=== PATIENT | male | born 1950 | race African-American/Black ===

== ENCOUNTER 2016-12-23 08:49 | Outpatient (CLI) | payer MEDICARE, MEDICAID ==
[2016-12-23 13:06] LABS: BASOPHILS % (AUTO) 0.3 %; EOSINOPHILS # (AUTO) 0.3 10^3/uL (0.0-0.7); EOSINOPHILS % (AUTO) 3.6 %; HCT - HEMATOCRIT 41.4 % (42.0-52.0); HGB - HEMOGLOBIN 13.6 g/dL (14.0-18.0); LYMPHOCYTES # (AUTO) 2.1 10^3/uL (1.5-3.5); LYMPHOCYTES % (AUTO) 27.2 %; MEAN CORPUSCULAR HEMOGLOBIN 27.3 pg (27.0-31.0); MEAN CORPUSCULAR HGB CONC 32.9 g/dL (32.0-36.0); MEAN CORPUSCULAR VOLUME 83.1 fL (80.0-94.0); MEAN PLATELET VOLUME 9.8 fL (7.4-11.4); MONOCYTES # (AUTO) 0.8 10^3/uL (0.0-1.0); MONOCYTES % (AUTO) 10.5 %; NEUTROPHILS # (AUTO) 4.6 10^3/uL (1.5-6.6); NEUTROPHILS % (AUTO) 58.4 %; RED BLOOD COUNT 4.98 10^6/uL (4.70-6.10); RED CELL DISTRIBUTION WIDTH 14.1 % (12.0-15.0); UNCORRECTED WHITE BLOOD COUNT 7.8 x10^3/uL; WHITE BLOOD COUNT 7.8 x10^3/uL (4.8-10.8)
[2016-12-23 13:31] LABS: ALBUMIN/GLOBULIN RATIO 1.2 (1.0-2.2); BILIRUBIN,TOTAL 1.1 mg/dL (0.2-1.0); CALCIUM 9.3 mg/dL (8.5-10.3); CREATININE 1.2 mg/dL (0.6-1.2); POTASSIUM 3.7 mmol/L (3.5-5.0); TOTAL PROTEIN 8.4 g/dL (6.7-8.2)
== END 2016-12-23 08:50 | disposition home or self-care (01) ==
LOC: LAB.N 08:49
PROVIDERS: ATTEND Physician Assistant
DX: I10 Essential (primary) hypertension (principal)
CPT/HCPCS: 36415; 80053; 84443; 85025

== ENCOUNTER 2017-08-19 08:27 | Outpatient (CLI) | payer MEDICARE, MEDICAID ==
--- NOTE | 2017-08-19 12:08 | XRAY Report ---
THREE VIEW RIGHT KNEE: 08/19/2017 CLINICAL INDICATION: Knee joint instability. FINDINGS: AP, lateral, sunrise views of the right knee demonstrate no evidence of fracture or dislocation. The joint spaces are preserved. No effusion is present. IMPRESSION: NORMAL RIGHT KNEE. TD: 08/19/2017 12:06
== END 2017-08-19 08:28 | disposition home or self-care (01) ==
LOC: DI.N 08:27
PROVIDERS: ATTEND Family Medicine
DX: M25.361 Other instability, right knee (principal)

== ENCOUNTER 2017-09-11 11:30 | Outpatient (CLI) | payer MEDICARE, MEDICAID ==
[2017-09-11 19:08] LABS: BASOPHILS % (AUTO) 0.3 %; EOSINOPHILS # (AUTO) 0.2 10^3/uL (0.0-0.7); EOSINOPHILS % (AUTO) 2.8 %; HGB - HEMOGLOBIN 13.3 g/dL (14.0-18.0); LYMPHOCYTES # (AUTO) 2.1 10^3/uL (1.5-3.5); LYMPHOCYTES % (AUTO) 28.4 %; MEAN CORPUSCULAR HEMOGLOBIN 27.2 pg (27.0-31.0); MEAN CORPUSCULAR HGB CONC 32.6 g/dL (32.0-36.0); MEAN CORPUSCULAR VOLUME 83.4 fL (80.0-94.0); MEAN PLATELET VOLUME 9.7 fL (7.4-11.4); MONOCYTES # (AUTO) 0.7 10^3/uL (0.0-1.0); NEUTROPHILS # (AUTO) 4.3 10^3/uL (1.5-6.6); NEUTROPHILS % (AUTO) 59.5 %; PLT - PLATELET COUNT 206 10^3/uL (130-450); RED BLOOD COUNT 4.88 10^6/uL (4.70-6.10); RED CELL DISTRIBUTION WIDTH 14.3 % (12.0-15.0); WHITE BLOOD COUNT 7.2 x10^3/uL (4.8-10.8)
[2017-09-11 19:33] LABS: ALBUMIN 4.6 g/dL (3.2-5.5); ALBUMIN/GLOBULIN RATIO 1.2 (1.0-2.2); ALKALINE PHOSPHATASE 60 IU/L (42-121); ALT ALANINE AMINOTRANSFERASE 25 IU/L (10-60); AST ASPARTATE AMINOTRANSFERASE 23 IU/L (10-42); BILIRUBIN,TOTAL 1.1 mg/dL (0.2-1.0); BUN - BLOOD UREA NITROGEN 20 mg/dL (6-20); CALCIUM 9.1 mg/dL (8.5-10.3); CARBON DIOXIDE - CO2 23 mmol/L (21-32); CHLORIDE 106 mmol/L (101-111); CHOL/HDL RATIO 6.8 (<5.0); CHOLESTEROL 210 mg/dL; CREATININE 1.2 mg/dL (0.6-1.2); GFR - MDRD 73 (>89); GLUCOSE 99 mg/dL (70-100); HDL CHOLESTEROL 31 mg/dL; LDL CHOLESTEROL,CALCULATED 154 mg/dL; SODIUM 136 mmol/L (135-145); TOTAL PROTEIN 8.3 g/dL (6.7-8.2); VLDL CHOLESTEROL 25 mg/dL
== END 2017-09-11 11:31 | disposition home or self-care (01) ==
LOC: LAB.N 11:30
PROVIDERS: ATTEND Family Medicine
DX: B18.2 Chronic viral hepatitis C (principal); I10 Essential (primary) hypertension
CPT/HCPCS: 36415; 80053; 80061; 83721; 84443; 85025

== ENCOUNTER 2018-01-05 11:33 | Outpatient (CLI) | payer MEDICARE, MEDICAID ==
--- NOTE | 2018-01-05 14:28 | XRAY Report ---
Procedure Date: 01/05/2018 Accession Number: [id number] / [id number] Procedure: XRN - Ribs Bilat w/Chest 4 View CPT Code: FULL RESULT: EXAM: Ribs Bilat w/Chest 4 View DATE: 01/05/2018 12:15 PM CLINICAL HISTORY: acquired deformity of chest/ribs COMPARISON: None. TECHNIQUE: 1 view of the chest and 2 views of the bilateral ribs. FINDINGS: Bones: Normal. No fracture or bone lesion. Lungs: No focal opacities. No pneumothorax or pleural effusions. Mediastinum: Heart and mediastinal contours are unremarkable. Other: None. IMPRESSION: Normal chest and rib radiography. RADIA
== END 2018-01-05 11:34 | disposition home or self-care (01) ==
LOC: DI.N 11:33
PROVIDERS: ATTEND Family Medicine
DX: M95.4 Acquired deformity of chest and rib (principal); R29.6 Repeated falls
CPT/HCPCS: 71111

== ENCOUNTER 2018-04-09 09:46 | Outpatient (CLI) | payer MEDICARE, MEDICAID ==
[2018-04-09 15:47] LABS: CREATININE 1.1 mg/dL (0.6-1.2)
== END 2018-04-09 09:47 | disposition home or self-care (01) ==
LOC: LAB.N 09:46
PROVIDERS: ATTEND Family Medicine
DX: I10 Essential (primary) hypertension (principal)
CPT/HCPCS: 36415; 80048

== ENCOUNTER 2018-09-20 14:31 | Outpatient (CLI) | payer MEDICARE, MEDICAID | END 2018-09-20 14:32 | disposition critical access hospital (66) | LOC: EMS 14:31 | PROVIDERS: ATTEND Surgery | DX: R05 Cough (principal); M25.551 Pain in right hip | CPT/HCPCS: A0425; A0429 ==

== ENCOUNTER 2018-09-20 14:51 | Emergency (ER) | payer MEDICARE, MEDICAID ==
[2018-09-20] MEDS ORDERED: ONDANSETRON 4 MG/2 ML VIAL IVP STA (16:11)
[2018-09-20] MEDS ORDERED: CARBIDOPA/LEVODOPA 25 MG/100 MG TABLET PO STA (16:11)
[2018-09-20] MEDS ORDERED: DEXAMETHASONE 10 MG/ML VIAL IVP STA (16:11)
--- NOTE | 2018-09-20 16:14 | ED Physician Documentation ---
History of Present Illness - Stated complaint Stated Complaint: FEVER/N/V - Chief complaint Chief Complaint: General - History obtained from History obtained from: Patient, Family - History of Present Illness Timing: How many days ago (4) - Additonal information Additional information: 68-year-old male with a history of Parkinson's disease has developed a cough fever and congestion over the past 4 days. Today his fever spiked and he is feeling weak and he collapsed at home. He did vomit today as well. He was vomiting right after he took his dose of carbidopa levodopa. Review of Systems Constitutional: reports: Fever, Chills, Myalgias, Fatigue Eyes: denies: Decreased vision Ears: denies: Ear pain Nose: reports: Rhinorrhea / runny nose, Congestion Throat: reports: Sore throat Cardiac: denies: Chest pain / pressure, Palpitations Respiratory: reports: Dyspnea, Cough GI: reports: Nausea, Vomiting. denies: Abdominal Pain : denies: Dysuria, Frequency Skin: denies: Rash Musculoskeletal: denies: Neck pain, Back pain, Extremity pain, Joint pain Neurologic: reports: Generalized weakness. denies: Focal weakness, Numbness PD PAST MEDICAL HISTORY - Past Medical History Past Medical History: Yes Cardiovascular: Hypertension Respiratory: None Neuro: Parkinson's Endocrine/Autoimmune: None GI: Hepatitis, Other : None HEENT: None Psych: None Musculoskeletal: None Derm: None - Past Surgical History General: Colonoscopy, Other - Present Medications Home Medications: Ambulatory Orders Medication Instructions Recorded Confirmed Losartan [Cozaar] 100 mg PO DAILY 02/23/14 09/20/18 Multivitamin [Multivitamins] 1 each PO DAILY 02/23/14 09/20/18 Carbidopa/Levodopa [Carbidopa-Levo 1 each PO QID 09/20/18 09/20/18 ER 25-100 Tab] Omeprazole 20 mg PO DAILY 09/20/18 09/20/18 Ondansetron Odt [Zofran] 4 mg TL Q6H PRN #10 tablet 09/20/18 Oseltamivir [Tamiflu] 75 mg PO BID #10 capsule 09/20/18 Trazodone HCl 100 mg PO QPM 09/20/18 09/20/18 - Allergies Allergies/Adverse Reactions: Allergies Allergy/AdvReac Type Severity Reaction Status Date / Time No Known Drug Allergies Allergy Verified 09/20/18 15:00 - Social History Does the pt smoke?: No Smoking Status: Never smoker Does the pt drink ETOH?: No Does the pt have substance abuse?: No PD ED PE NORMAL - Vitals Vital signs reviewed: Yes (febrile and tachy ) - General General: Alert and oriented X 3, No acute distress, Well developed/nourished, Other (masked facies of Parkinsons. 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 ) Results - Vitals Vitals: Vital Signs - 24 hr 09/20/18 09/20/18 09/20/18 14:57 17:12 17:17 Temperature 38.1 C H 37.6 C H Heart Rate 110 H 104 H Respiratory 18 18 Rate Blood Pressure 147/80 H 134/86 H O2 Saturation 95 98 Oxygen O2 Source Room air - Labs Labs: Laboratory Tests 09/20/18 09/20/18 09/20/18 16:25 16:25 16:25 WBC 10.3 RBC 5.03 Hgb 13.7 L Hct 41.5 L MCV 82.6 MCH 27.2 MCHC 33.0 RDW 13.8 Plt Count 230 MPV 9.2 Neut # (Auto) 8.2 H Lymph # (Auto) 0.9 L [place] # (Auto) 1.0 Eos # (Auto) 0.1 Baso # (Auto) 0.0 Absolute Nucleated RBC 0.00 Nucleated RBC % 0.0 Sodium 137 Potassium 3.4 L Chloride 101 Carbon Dioxide 25 Anion Gap 11.0 BUN 18 Creatinine 1.4 H Estimated GFR (MDRD) 61 L Glucose 84 Lactic Acid Calcium 8.8 Total Bilirubin 1.7 H AST 29 ALT < 10 L Alkaline Phosphatase 73 Troponin I < 0.04 Total Protein 8.7 H Albumin 4.6 Globulin 4.1 Albumin/Globulin Ratio 1.1 Lipase 33 Influenza A (Rapid) Influenza B (Rapid) 09/20/18 09/20/18 16:35 17:00 WBC RBC Hgb Hct MCV MCH MCHC RDW Plt Count MPV Neut # (Auto) Lymph # (Auto) [place] # (Auto) Eos # (Auto) Baso # (Auto) Absolute Nucleated RBC Nucleated RBC % Sodium Potassium Chloride Carbon Dioxide Anion Gap BUN Creatinine Estimated GFR (MDRD) Glucose Lactic Acid 1.5 Calcium Total Bilirubin AST ALT Alkaline Phosphatase Troponin I Total Protein Albumin Globulin Albumin/Globulin Ratio Lipase Influenza A (Rapid) POSITIVE H Influenza B (Rapid) Negative - Rads (name of study) chest Radiology: Prelim report reviewed (Impression: Negative single view chest.), EMP read indepedently, See rad report Procedures - IVC sono (time) 09246 Bedside IVC sono: IVC measures (cm) (1.23), IVC collapsed c insp (cm) (complete), Dehydration (est 1 liter deficit.) PD MEDICAL DECISION MAKING - ED course Complexity details: considered differential, d/w patient, d/w family ED course: 68-year-old male with a history of Parkinson's has developed fever nausea and vomiting with a cough. He is administered dexamethasone 10 mg orally a liter of saline and after the use of Zofran he is administered oral carbidopa levodopa. He is flu A + and compromised. He is prescribed tamiflu as well. Departure - Departure Disposition: 01 Home, Self Care Clinical Impression: Influenza A, Dehydration Condition: Stable Instructions: ED Dehydration, ED Flu Follow-Up: Mary Vides ARNP [Primary Care Provider] - Prescriptions: Ondansetron Odt [Zofran] 4 mg TL Q6H PRN #10 tablet PRN Reason: Nausea / Vomiting Oseltamivir [Tamiflu] 75 mg PO BID #10 capsule
[2018-09-20 16:44] LABS: BASOPHILS % (AUTO) 0.4 %; EOSINOPHILS # (AUTO) 0.1 10^3/uL (0.0-0.7); EOSINOPHILS % (AUTO) 1.3 %; HGB - HEMOGLOBIN 13.7 g/dL (14.0-18.0); LYMPHOCYTES # (AUTO) 0.9 10^3/uL (1.5-3.5); LYMPHOCYTES % (AUTO) 8.7 %; MEAN CORPUSCULAR HEMOGLOBIN 27.2 pg (27.0-31.0); MEAN CORPUSCULAR VOLUME 82.6 fL (80.0-94.0); MEAN PLATELET VOLUME 9.2 fL (7.4-11.4); NEUTROPHILS # (AUTO) 8.2 10^3/uL (1.5-6.6); NEUTROPHILS % (AUTO) 79.6 %; PLT - PLATELET COUNT 230 10^3/uL (130-450); RED BLOOD COUNT 5.03 10^6/uL (4.70-6.10); RED CELL DISTRIBUTION WIDTH 13.8 % (12.0-15.0); WHITE BLOOD COUNT 10.3 x10^3/uL (4.8-10.8)
[2018-09-20 16:56] LABS: ALBUMIN 4.6 g/dL (3.2-5.5); ALBUMIN/GLOBULIN RATIO 1.1 (1.0-2.2); ALKALINE PHOSPHATASE 73 IU/L (42-121); ALT ALANINE AMINOTRANSFERASE < 10 IU/L (10-60); AST ASPARTATE AMINOTRANSFERASE 29 IU/L (10-42); BILIRUBIN,TOTAL 1.7 mg/dL (0.2-1.0); BUN - BLOOD UREA NITROGEN 18 mg/dL (6-20); CALCIUM 8.8 mg/dL (8.5-10.3); CARBON DIOXIDE - CO2 25 mmol/L (21-32); CHLORIDE 101 mmol/L (101-111); CREATININE 1.4 mg/dL (0.6-1.2); GFR - MDRD 61 (>89); GLUCOSE 84 mg/dL (70-100); LIPASE 33 U/L (22-51); SODIUM 137 mmol/L (135-145); TOTAL PROTEIN 8.7 g/dL (6.7-8.2)
--- NOTE | 2018-09-20 17:03 | XRAY Report ---
Reason: cough syncope collapse fever Procedure Date: 09/20/2018 Accession Number: [id number] / [id number] Procedure: XR - Chest 1 View X-Ray CPT Code: 99229 FULL RESULT: EXAM: CHEST RADIOGRAPHY EXAM DATE: 09/20/2018 04:54 PM. CLINICAL HISTORY: Cough syncope collapse fever. COMPARISON: RIBS BILAT W/CHEST 4 VIEW 01/05/2018 12:02 PM. TECHNIQUE: 1 view. FINDINGS: Lungs/Pleura: No focal opacities evident. No pleural effusion. No pneumothorax. Mediastinum: Within exam limitations, the cardiomediastinal contour is normal. Other: None. IMPRESSION: Negative single view chest. RADIA
[2018-09-20 19:23] VITALS: BP 144/94
== END 2018-09-20 19:15 | disposition home or self-care (01) ==
LOC: EDUNIT# → ED 14:51
DX: J10.89 Influenza due to other identified influenza virus with other manifestations (principal); E86.0 Dehydration; G20 Parkinson's disease; I10 Essential (primary) hypertension
CPT/HCPCS: 36415; 71045; 80053; 83605; 83690; 84484; 85025; 87040; 87275; 87276; 96374; 96375; 99283; 99284; A9270

== ENCOUNTER 2018-10-20 08:00 | Outpatient (CLI) | payer MEDICARE, MEDICAID ==
[2018-10-20 12:49] LABS: BASOPHILS % (AUTO) 0.3 %; EOSINOPHILS # (AUTO) 0.3 10^3/uL (0.0-0.7); EOSINOPHILS % (AUTO) 3.5 %; HGB - HEMOGLOBIN 13.3 g/dL (14.0-18.0); LYMPHOCYTES # (AUTO) 1.8 10^3/uL (1.5-3.5); LYMPHOCYTES % (AUTO) 22.7 %; MEAN CORPUSCULAR HEMOGLOBIN 27.5 pg (27.0-31.0); MEAN CORPUSCULAR HGB CONC 32.8 g/dL (32.0-36.0); MEAN CORPUSCULAR VOLUME 83.9 fL (80.0-94.0); MEAN PLATELET VOLUME 9.6 fL (7.4-11.4); MONOCYTES # (AUTO) 0.6 10^3/uL (0.0-1.0); MONOCYTES % (AUTO) 7.7 %; NEUTROPHILS # (AUTO) 5.1 10^3/uL (1.5-6.6); NEUTROPHILS % (AUTO) 65.8 %; PLT - PLATELET COUNT 232 10^3/uL (130-450); RED BLOOD COUNT 4.83 10^6/uL (4.70-6.10); RED CELL DISTRIBUTION WIDTH 14.3 % (12.0-15.0); WHITE BLOOD COUNT 7.8 x10^3/uL (4.8-10.8)
[2018-10-20 13:19] LABS: BUN - BLOOD UREA NITROGEN 8 mg/dL (6-20); CALCIUM 9.2 mg/dL (8.5-10.3); CARBON DIOXIDE - CO2 25 mmol/L (21-32); CHLORIDE 103 mmol/L (101-111); CHOL/HDL RATIO 5.1 (<5.0); CHOLESTEROL 183 mg/dL; CREATININE 1.2 mg/dL (0.6-1.2); GFR - MDRD 73 (>89); GLUCOSE 97 mg/dL (70-100); HDL CHOLESTEROL 36 mg/dL; LDL CHOLESTEROL,CALCULATED 115 mg/dL; LDL/HDL RATIO 3.2 (<3.6); SODIUM 138 mmol/L (135-145); VLDL CHOLESTEROL 32 mg/dL
== END 2018-10-20 23:59 | disposition home or self-care (01) ==
LOC: LAB.N 08:00
PROVIDERS: ATTEND Physician Assistant Medical
DX: I12.9 Hypertensive chronic kidney disease with stage 1 through stage 4 chronic kidney disease, or unspecified chronic kidney disease (principal); N18.2 Chronic kidney disease, stage 2 (mild); G47.00 Insomnia, unspecified
CPT/HCPCS: 36415; 80048; 80061; 83721; 84443; 85025

== ENCOUNTER 2020-05-18 09:23 | Day surgery (SDC) | payer MEDICARE, MEDICAID ==
[2020-05-18] MEDS ORDERED: MIDAZOLAM 2 MG/2 ML VIAL IVP ONE (10:40)
[2020-05-18] MEDS ORDERED: fentaNYL 250 MCG/5 ML VIAL IVP ONE (10:40)
[2020-05-18] MEDS ORDERED: LACTATED RINGERS 1,000 ML IV ONE (11:23)
[2020-05-18 12:00] VITALS: BP 141/93
== END 2020-05-18 09:24 | disposition home or self-care (01) ==
LOC: SDS 09:23
PROVIDERS: ATTEND Surgery
PROC: 0DJD8ZZ Inspection of Lower Intestinal Tract, Via Natural or Artificial Opening Endoscopic (ICD-10-PCS; principal; 2020-05-18 10:45)
DX: D64.9 Anemia, unspecified (principal); K57.30 Diverticulosis of large intestine without perforation or abscess without bleeding; Z86.010 Personal history of colon polyps; I12.9 Hypertensive chronic kidney disease with stage 1 through stage 4 chronic kidney disease, or unspecified chronic kidney disease; N18.2 Chronic kidney disease, stage 2 (mild)
CPT/HCPCS: 45378; J3010; J7120

== ENCOUNTER 2020-07-16 08:05 | Outpatient (CLI) | payer MEDICARE, MEDICAID | END 2020-07-16 08:06 | disposition EMS.NT | LOC: EMS 08:05 | PROVIDERS: ATTEND Surgery | DX: R41.0 Disorientation, unspecified (principal) ==

== ENCOUNTER 2020-07-16 22:19 | Outpatient (CLI) | payer MEDICARE, MEDICAID | END 2020-07-16 22:20 | disposition critical access hospital (66) | LOC: EMS 22:19 | PROVIDERS: ATTEND Surgery | DX: R41.0 Disorientation, unspecified (principal) | CPT/HCPCS: A0425; A0429 ==

== ENCOUNTER 2020-07-16 22:36 | Emergency (ER) | payer MEDICARE, MEDICAID ==
[2020-07-16 23:10] LABS: BASOPHILS % (AUTO) 0.3 %; EOSINOPHILS # (AUTO) 0.2 10^3/uL (0.0-0.7); EOSINOPHILS % (AUTO) 1.9 %; HGB - HEMOGLOBIN 12.6 g/dL (14.0-18.0); LYMPHOCYTES # (AUTO) 2.5 10^3/uL (1.5-3.5); LYMPHOCYTES % (AUTO) 27.7 %; MEAN CORPUSCULAR HEMOGLOBIN 28.1 pg (27.0-31.0); MEAN CORPUSCULAR HGB CONC 32.1 g/dL (32.0-36.0); MEAN CORPUSCULAR VOLUME 87.5 fL (80.0-94.0); MEAN PLATELET VOLUME 11.4 fL (7.4-11.4); MONOCYTES # (AUTO) 0.9 10^3/uL (0.0-1.0); MONOCYTES % (AUTO) 10.1 %; NEUTROPHILS # (AUTO) 5.5 10^3/uL (1.5-6.6); NEUTROPHILS % (AUTO) 59.9 %; PLT - PLATELET COUNT 194 10^3/uL (130-450); RED BLOOD COUNT 4.49 10^6/uL (4.70-6.10); WHITE BLOOD COUNT 9.1 x10^3/uL (4.8-10.8)
[2020-07-16 23:21] LABS: ALBUMIN 4.2 g/dL (3.2-5.5); ALBUMIN/GLOBULIN RATIO 1.2 (1.0-2.2); BILIRUBIN,TOTAL 0.8 mg/dL (0.2-1.0); CALCIUM 9.3 mg/dL (8.5-10.3); CREATININE 1.1 mg/dL (0.6-1.2); TOTAL PROTEIN 7.6 g/dL (6.7-8.2)
--- NOTE | 2020-07-16 23:46 | ED Physician Documentation ---
PD HPI ALTERED MENTAL STATUS - Stated complaint Stated Complaint: AMS - Chief complaint Chief Complaint: Neuro - History obtained from History obtained from: Patient, EMS - History of Present Illness Timing - onset: Today Timing - details: Waxing and waning Quality / character: Confused (he says he mixed up day and night. called EMS as the patient was somewhat confused, not oriented to time. EMS reports the pateint complained of shortness of breath.) Associated symptoms: Dyspnea. No: Fever, Headache, Cough, NVD, Focal weakness Contributing factors: No: Anticoagulated, Diabetic, Recent med change, Recent illness, Recent injury Basline status: Alert and oriented X 3, Walker Treatment SUMMER NANNY: Accucheck Similar symptoms before: No diagnosis (milder symptoms at times) Recently seen: Not recently seen (he denies any recent change in medications) Review of Systems Constitutional: denies: Fever, Chills Nose: denies: Rhinorrhea / runny nose, Congestion Throat: denies: Sore throat Respiratory: denies: Cough GI: denies: Abdominal Pain, Nausea, Vomiting, Diarrhea Musculoskeletal: denies: Neck pain, Back pain Neurologic: denies: Focal weakness, Numbness, Near syncope, Headache PD PAST MEDICAL HISTORY - Past Medical History Cardiovascular: Hypertension Respiratory: None Neuro: Parkinson's Endocrine/Autoimmune: None GI: Hepatitis, Other : None HEENT: None Psych: None Musculoskeletal: None Derm: None - Past Surgical History Past Surgical History: Yes General: Colonoscopy, Other - Present Medications Home Medications: Ambulatory Orders Medication Instructions Recorded Confirmed Losartan [Cozaar] 100 mg PO DAILY 02/23/14 07/16/20 Multivitamin [Multivitamins] 1 each PO DAILY 02/23/14 07/16/20 Carbidopa/Levodopa [Carbidopa-Levo 1 each PO QID 09/20/18 07/16/20 ER 25-100 Tab] Omeprazole 20 mg PO DAILY 09/20/18 07/16/20 Trazodone HCl 100 mg PO QPM 09/20/18 07/16/20 amLODIPine [Norvasc] 5 mg PO DAILY 07/16/20 07/16/20 - Allergies Allergies/Adverse Reactions: Allergies Allergy/AdvReac Type Severity Reaction Status Date / Time No Known Drug Allergies Allergy Verified 07/16/20 22:48 - Living Situation Living Situation: reports: With spouse/s.o. Living Arrangement: reports: At home - Social History Does the pt smoke?: No Smoking Status: Never smoker Does the pt drink ETOH?: No Does the pt have substance abuse?: No - Immunizations Immunizations are current?: Yes PD ED PE NORMAL - Vitals Vital signs reviewed: Yes - General General: No acute distress, Well developed/nourished, Other. No: Alert and oriented X 3 (person and place, and pretty close on date (said Jun), but did not recall eating today or what he had to eat. 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 No: ST elevation c/w ischemia, ST depression - Labs Labs: Laboratory Tests 07/16/20 07/16/20 07/16/20 23:00 23:00 23:00 WBC 9.1 RBC 4.49 L Hgb 12.6 L Hct 39.3 L MCV 87.5 MCH 28.1 MCHC 32.1 RDW 14.0 Plt Count 194 MPV 11.4 Neut # (Auto) 5.5 Lymph # (Auto) 2.5 [place] # (Auto) 0.9 Eos # (Auto) 0.2 Baso # (Auto) 0.0 Absolute Nucleated RBC 0.00 Nucleated RBC % 0.0 Sodium 139 Potassium 3.7 Chloride 105 Carbon Dioxide 24 Anion Gap 10.0 BUN 16 Creatinine 1.1 Estimated GFR (MDRD) 80 L Glucose 99 Calcium 9.3 Total Bilirubin 0.8 AST 20 ALT 12 Alkaline Phosphatase 63 Troponin I High Sens 4.9 B-Natriuretic Peptide Total Protein 7.6 Albumin 4.2 Globulin 3.4 Albumin/Globulin Ratio 1.2 Lipase 41 07/16/20 23:00 WBC RBC Hgb Hct MCV MCH MCHC RDW Plt Count MPV Neut # (Auto) Lymph # (Auto) [place] # (Auto) Eos # (Auto) Baso # (Auto) Absolute Nucleated RBC Nucleated RBC % Sodium Potassium Chloride Carbon Dioxide Anion Gap BUN Creatinine Estimated GFR (MDRD) Glucose Calcium Total Bilirubin AST ALT Alkaline Phosphatase Troponin I High Sens B-Natriuretic Peptide 25 Total Protein Albumin Globulin Albumin/Globulin Ratio Lipase - Rads (name of study) head CT Radiology: Prelim report reviewed (age related changes, no acute process), See rad report PD MEDICAL DECISION MAKING - ED course Complexity details: reviewed results, re-evaluated patient (he is still feeling okay. No complaint of dyspnea here now.), considered differential (can check labs and CXR/ECG for dyspnea causes. He seems reasonably oriented here. Can check labs and CT head. No recent illness nor med changes. ), d/w patient Departure - Departure Disposition: 01 Home, Self Care Clinical Impression: Confusion Dyspnea Qualifiers: Dyspnea type: shortness of breath Qualified Code(s): R06.02 - Shortness of breath Condition: Stable Record reviewed to determine appropriate education?: Yes Instructions: ED Dyspnea Shortness of Breath Comments: Your basic blood tests of blood count and chemistry panel as well as chest x-ray EKG and head CT appear normal at this time. No signs of pneumonia nor heart failure nor heart attack. Not clear the cause of your feeling of shortness of breath. Continue with usual medications and stay well-hydrated. Follow-up with your primary care. Discharge Date/Time: 07/17/20 03:58
[2020-07-17 03:47] VITALS: BP 162/88
--- NOTE | 2020-07-17 07:47 | CT Report ---
PROCEDURE: HEAD WO INDICATIONS: confus TECHNIQUE: Noncontrast 4.5 mm thick angled axial sections acquired from the foramen magnum to the vertex. For r adiation dose reduction, the following was used: automated exposure control, adjustment of mA and/or kV according to patient size. COMPARISON: Brain MRI dated 06/12/2015 FINDINGS: Image quality: Excellent. CSF spaces: Basal cisterns are patent. No extra-axial fluid collections. Ventricles are stable in size and configuration. Brain: There is diffuse cortical volume loss with associated ex vacuo dilatation of the bilateral ve ntricles. No acute intracranial hemorrhage or evidence of transcortical infarction. Scattered bilat eral periventricular white matter hypoattenuation likely sequela from chronic small vessel ischemic d isease. Atherosclerotic calcifications within the intracranial segments of the bilateral internal car otid arteries are noted. Skull and face: Calvarium and visualized facial bones are intact, without suspicious lesions. Sinuses: Visualized sinuses and mastoids are clear. IMPRESSION: 1. CT head without acute intracranial abnormalities. 2. Stable age-related senescent changes and sequela of chronic small vessel ischemic disease. 3. Stable size and configuration of the bilateral ventricles. No significant discrepancy with initial interpretation by overnight radiologist. Reviewed by: Parish Alicea MD on 07/17/2020 7:46 AM PST Approved by: Parish Alicea MD on 07/17/2020 7:46 AM PST Station ID: [id number]
--- NOTE | 2020-07-17 10:13 | XRAY Report ---
PROCEDURE: Chest 1 View X-Ray INDICATIONS: dyspnea TECHNIQUE: One view of the chest was acquired. COMPARISON: Chest x-ray 09/21/2018 FINDINGS: Surgical changes and devices: None. Lungs and pleura: No pleural effusions or pneumothorax. Lungs are clear. Mediastinum: Mediastinal contours appear normal. Heart size is normal. Bones and chest wall: No suspicious bony lesions. Overlying soft tissues appear unremarkable. IMPRESSION: No acute pulmonary process. Reviewed by: Ivette Jones MD on 07/17/2020 10:11 AM [facility] Approved by: Ivette Jones MD on 07/17/2020 10:11 AM [facility] Station ID: [id number]
== END 2020-07-17 03:58 | disposition home or self-care (01) ==
LOC: EDUNIT# → EDBD → ED 22:36
DX: R41.0 Disorientation, unspecified (principal); R06.02 Shortness of breath; I10 Essential (primary) hypertension; G20 Parkinson's disease
CPT/HCPCS: 36415; 70450; 80053; 83690; 83880; 84484; 85025; 93005; 99284

== ENCOUNTER 2020-07-18 08:00 | Outpatient (CLI) | payer MEDICARE, MEDICAID ==
[2020-07-18 12:23] LABS: CREATININE,URINE 269.9 mg/dL; MICROALBUM/CREATININE RATIO,UR 2.2 ug/mg (<30.0); MICROALBUMIN,URINE 0.6 mg/dL (0-300.0)
[2020-07-18 12:36] LABS: BUN - BLOOD UREA NITROGEN 16 mg/dL (6-20); CALCIUM 9.5 mg/dL (8.5-10.3); CARBON DIOXIDE - CO2 26 mmol/L (21-32); CHLORIDE 104 mmol/L (101-111); CHOL/HDL RATIO 3.7 (<5.0); CHOLESTEROL 192 mg/dL; CREATININE 1.1 mg/dL (0.6-1.2); GLUCOSE 93 mg/dL (70-100); HDL CHOLESTEROL 52 mg/dL; LDL CHOLESTEROL,CALCULATED 120 mg/dL; LDL/HDL RATIO 2.3 (<3.6); VLDL CHOLESTEROL 20 mg/dL
[2020-07-18 12:46] LABS: % IRON SATURATION 17 % (20-50); IRON 64 ug/dL (45-182); TOTAL IRON BINDING CAPACITY 377 ug/dL (250-450); TRANSFERRIN 269 mg/dL (180-329)
[2020-07-18 12:51] LABS: ABSOLUTE RETICS # AUTO 0.053 10^6/uL (0.020-0.110); RED BLOOD COUNT 4.69 10^6/uL (4.70-6.10)
[2020-07-18 12:53] LABS: HEMOGLOBIN A1c% 5.5 % (4.27-6.07)
[2020-07-18 12:56] LABS: FERRITIN 36.9 ng/mL (23.9-336.2)
[2020-07-18 13:01] LABS: FOLATE 9.1 ng/mL (5.90 - >24.8)
== END 2020-07-18 23:59 | disposition home or self-care (01) ==
LOC: LAB.WCP 08:00
PROVIDERS: ATTEND Internal Medicine
DX: I10 Essential (primary) hypertension (principal); G62.9 Polyneuropathy, unspecified
CPT/HCPCS: 36415; 80048; 80061; 82043; 82570; 82607; 82728; 82746; 83036; 83540; 83721; 84466; 85045

== ENCOUNTER 2020-07-20 10:30 | Outpatient (CLI) | payer MEDICARE, MEDICAID | END 2020-07-20 23:59 | disposition home or self-care (01) | LOC: LAB.R 10:30 | PROVIDERS: ATTEND Internal Medicine | DX: G62.9 Polyneuropathy, unspecified (principal) | CPT/HCPCS: 81599; 82570; 84156; 84166; 86335 ==

== ENCOUNTER 2020-09-30 20:53 | Outpatient (CLI) | payer MEDICARE, MEDICAID | END 2020-09-30 20:54 | disposition critical access hospital (66) | LOC: EMS 20:53 | PROVIDERS: ATTEND Emergency Medicine | DX: R06.01 Orthopnea (principal) | CPT/HCPCS: A0425; A0429 ==

== ENCOUNTER 2020-09-30 21:12 | Emergency (ER) | payer MEDICARE, MEDICAID ==
--- NOTE | 2020-09-30 21:33 | ED Physician Documentation ---
PD HPI DYSPNEA - Stated complaint Stated Complaint: SOA - Chief complaint Chief Complaint: Resp - History obtained from History obtained from: Patient, EMS - History of Present Illness Timing - onset: How many months ago (He states he has noticed couple of months in particular of feeling of dyspnea when he lays down flat. He denies exertional dyspnea. He has nausea at times with it.) Timing - onset during: Rest (lying flat) Timing - duration: Months Timing - details: Intermittant (does not notice it when sitting up nor with walking.) Inciting event(s): No: URI, Immobilization/travel Improved by: Sitting up Worsened by: Laying flat. No: Exertion, Coughing Associated symptoms: Other (reflux acid feeling at times.). No: Fever, Cough, Hemoptysis, Wheezing, Palpitations, Bilateral edema Similar symptoms before: No diagnosis Recently seen: Clinic (started on HCTZ but no CXR/labs.) Review of Systems Constitutional: denies: Fever, Chills Nose: denies: Rhinorrhea / runny nose, Congestion Throat: denies: Sore throat Cardiac: denies: Chest pain / pressure, Palpitations Respiratory: reports: Dyspnea. denies: Cough, Wheezing GI: reports: Nausea. denies: Abdominal Pain, Vomiting, Diarrhea, Bloody / black stool Neurologic: denies: Generalized weakness Endocrine: denies: Weight loss PD PAST MEDICAL HISTORY - Past Medical History Cardiovascular: Hypertension Respiratory: None Neuro: Parkinson's Endocrine/Autoimmune: None GI: Hepatitis, Other : None HEENT: None Psych: None Musculoskeletal: None Derm: None - Past Surgical History Past Surgical History: Yes General: Colonoscopy, Other - Present Medications Home Medications: Ambulatory Orders Medication Instructions Recorded Confirmed Multivitamin [Multivitamins] 1 each PO DAILY 02/23/14 07/16/20 Carbidopa/Levodopa [Carbidopa-Levo 1 each PO QID 09/20/18 07/16/20 ER 25-100 Tab] amLODIPine [Norvasc] 5 mg PO DAILY 07/16/20 07/16/20 Famotidine [Pepcid] 20 mg PO DAILY #30 tablet 09/30/20 Hydrochlorothiazide 25 mg PO QPM 09/30/20 09/30/20 Sucralfate [Carafate] 1 gm PO HS #30 tablet 09/30/20 - Allergies Allergies/Adverse Reactions: Allergies Allergy/AdvReac Type Severity Reaction Status Date / Time No Known Drug Allergies Allergy Verified 09/30/20 21:23 - Social History Does the pt smoke?: No Smoking Status: Never smoker Does the pt drink ETOH?: No Does the pt have substance abuse?: No - Immunizations Immunizations are current?: Yes PD ED PE NORMAL - Vitals Vital signs reviewed: Yes - General General: Alert and oriented X 3, No acute distress, Well developed/nourished - HEENT HEENT: Moist mucous membranes, Pharynx benign - Neck Neck: Supple, no meningeal sign, No adenopathy - Cardiac Cardiac: RRR, No murmur - Respiratory Respiratory: Clear bilaterally - Abdomen Abdomen: Normal bowel sounds, Soft, Non tender, Non distended, No organomegaly - Derm Derm: Normal color, Warm and dry - Extremities Extremities: No deformity, No tenderness to palpate, No edema, No calf tenderness / cord - Neuro Neuro: Alert and oriented X 3, No motor deficit, Normal speech Results - Vitals Vitals: Vital Signs - 24 hr 09/30/20 09/30/20 21:12 23:59 Temperature 37.0 C Heart Rate 87 74 Respiratory 20 18 Rate Blood Pressure 123/91 H 137/77 H O2 Saturation 100 100 Oxygen O2 Source Room air - EKG (time done) 21:37 Rate: Rate (enter#) (80) Rhythm: NSR [place]: Normal Intervals: Normal [place] QRS: Normal Ischemia: Normal ST segments. No: ST elevation c/w ischemia, ST depression - Labs Labs: Laboratory Tests 09/30/20 09/30/20 09/30/20 21:37 21:37 21:37 WBC 9.6 RBC 4.88 Hgb 13.7 L Hct 42.8 MCV 87.7 MCH 28.1 MCHC 32.0 RDW 13.6 Plt Count 249 MPV 10.8 Neut # (Auto) 6.3 Lymph # (Auto) 2.0 [place] # (Auto) 1.1 H Eos # (Auto) 0.1 Baso # (Auto) 0.0 Absolute Nucleated RBC 0.00 Nucleated RBC % 0.0 Sodium 138 Potassium 3.9 Chloride 104 Carbon Dioxide 25 Anion Gap 9.0 BUN 23 H Creatinine 1.2 Estimated GFR (MDRD) 73 L Glucose 106 H Calcium 9.3 Magnesium 2.3 Total Bilirubin 0.9 AST 17 ALT 12 Alkaline Phosphatase 67 Troponin I High Sens 6.3 B-Natriuretic Peptide Total Protein 8.0 Albumin 4.4 Globulin 3.6 Albumin/Globulin Ratio 1.2 Lipase 37 09/30/20 21:37 WBC RBC Hgb Hct MCV MCH MCHC RDW Plt Count MPV Neut # (Auto) Lymph # (Auto) [place] # (Auto) Eos # (Auto) Baso # (Auto) Absolute Nucleated RBC Nucleated RBC % Sodium Potassium Chloride Carbon Dioxide Anion Gap BUN Creatinine Estimated GFR (MDRD) Glucose Calcium Magnesium Total Bilirubin AST ALT Alkaline Phosphatase Troponin I High Sens B-Natriuretic Peptide 9 Total Protein Albumin Globulin Albumin/Globulin Ratio Lipase - Rads (name of study) CT chest Radiology: Prelim report reviewed (hiatal hernia with some indurated fat in area. No vascular process. ), Other chest xray Radiology: Prelim report reviewed (no acute process), See rad report PD MEDICAL DECISION MAKING - ED course Complexity details: re-evaluated patient (improved with GI cocktail. CT showing hiatal hernia with indurated fat in the area c/w some active esophagitis/GERD), considered differential (does not seem fluid overloaded, no edema. Consider reflux, also consider structural process (tumor or such) that affects bronchioles/airspace with lying flat. Will get CXR/CT to eval. ), d/w patient Departure - Departure Disposition: 01 Home, Self Care Clinical Impression: Orthopnea GERD with esophagitis Qualifiers: Esophagitis bleeding: without hemorrhage Qualified Code(s): K21.00 - Gastro- esophageal reflux disease with esophagitis, without bleeding Condition: Stable Record reviewed to determine appropriate education?: Yes Instructions: ED Dyspnea Shortness of Breath, ED GERD Prescriptions: Sucralfate [Carafate] 1 gm PO HS #30 tablet Famotidine [Pepcid] 20 mg PO DAILY #30 tablet Comments: Your CT scan shows normal-appearing lungs. No signs of heart disease based on your EKG and blood test. The CT scan did show a hiatal hernia which is where part of the stomach is up just above the level of the diaphragm. This promotes more easy reflux. There was some inflammation around the end of the esophagus noted on the scan as well. I think your symptoms you have been having are related to reflux of stomach acids and irritation of the esophagus and also towards the upper airway. I would suggest sleeping with a couple of pillows to prop up at a slight angle. Also start famotidine acid reducing medicine daily and Carafate to coat the esophagus and stomach taken at night before bedtime. Follow-up with your primary care for further evaluation. Discharge Date/Time: 10/01/20 00:13
[2020-09-30 21:43] LABS: BASOPHILS % (AUTO) 0.2 %; EOSINOPHILS # (AUTO) 0.1 10^3/uL (0.0-0.7); EOSINOPHILS % (AUTO) 1.4 %; HCT - HEMATOCRIT 42.8 % (42.0-52.0); HGB - HEMOGLOBIN 13.7 g/dL (14.0-18.0); LYMPHOCYTES % (AUTO) 20.8 %; MEAN CORPUSCULAR HEMOGLOBIN 28.1 pg (27.0-31.0); MEAN CORPUSCULAR VOLUME 87.7 fL (80.0-94.0); MEAN PLATELET VOLUME 10.8 fL (7.4-11.4); MONOCYTES # (AUTO) 1.1 10^3/uL (0.0-1.0); MONOCYTES % (AUTO) 11.2 %; NEUTROPHILS # (AUTO) 6.3 10^3/uL (1.5-6.6); NEUTROPHILS % (AUTO) 66.1 %; PLT - PLATELET COUNT 249 10^3/uL (130-450); RED BLOOD COUNT 4.88 10^6/uL (4.70-6.10); RED CELL DISTRIBUTION WIDTH 13.6 % (12.0-15.0); WHITE BLOOD COUNT 9.6 x10^3/uL (4.8-10.8)
[2020-09-30 21:59] LABS: ALBUMIN 4.4 g/dL (3.2-5.5); ALBUMIN/GLOBULIN RATIO 1.2 (1.0-2.2); BILIRUBIN,TOTAL 0.9 mg/dL (0.2-1.0); CALCIUM 9.3 mg/dL (8.5-10.3); CREATININE 1.2 mg/dL (0.6-1.2); MAGNESIUM 2.3 mg/dL (1.7-2.8); POTASSIUM 3.9 mmol/L (3.5-5.0)
[2020-09-30] MEDS ORDERED: IOPAMIDOL-300 100 ML VIAL ONE (22:35)
[2020-09-30] MEDS ORDERED: IOPAMIDOL-300 100 ML VIAL IVP ONE (23:20)
[2020-09-30] MEDS ORDERED: FAMOTIDINE 20 MG TABLET PO STA (23:55)
[2020-09-30] MEDS ORDERED: MAG HYDROX/AL HYDROX/SIMETH 30 ML UDC PO STA (23:55)
[2020-09-30 23:59] VITALS: BP 137/77
--- NOTE | 2020-10-01 08:02 | XRAY Report ---
PROCEDURE: Chest 1 View X-Ray INDICATIONS: Chest Pain TECHNIQUE: One view of the chest was acquired. COMPARISON: CT chest 09/30/2020 and plain film chest 07/16/2020 FINDINGS: Surgical changes and devices: None. Lungs and pleura: No pleural effusions or pneumothorax. Lungs are clear. Mediastinum: Mediastinal contours appear normal. Heart size is normal. Bones and chest wall: No suspicious bony lesions. Overlying soft tissues appear unremarkable. IMPRESSION: No acute disease, a definite source of chest pain and shortness of breath is not found. Reviewed by: Boby Grant MD on 10/01/2020 8:01 AM PDT Approved by: Boby Grant MD on 10/01/2020 8:01 AM PDT Station ID: [id number]
--- NOTE | 2020-10-01 08:45 | CT Report ---
PROCEDURE: CHEST W INDICATIONS: dyspnea for month or more CONTRAST: IV CONTRAST: Isovue 300 ml: 100 PO CONTRAST: *NO PO CONTRAST TECHNIQUE: After the administration of intravenous contrast, 5 mm thick sections acquired from the pulmonary api daiz to the posterior costophrenic angles. 7 mm thick coronal MIP reformats were acquired. For radia tion dose reduction, the following was used: automated exposure control, adjustment of mA and/or kV according to patient size. COMPARISON: Chest plain film same day.. FINDINGS: Image quality: Excellent. Lungs and pleura: No acute air space opacities. No pleural effusions or pneumothorax. Central and peripheral airways are patent and normal in caliber. Mediastinum: Heart size is normal. No pericardial effusion. No mediastinal or hilar adenopathy by size criteria. Thoracic aorta and central pulmonary arteries are normal in size. Esophagus is rakesh l in caliber. No hiatal hernia. Bones and chest wall: No suspicious bony lesions. No vertebral body compression fractures. No axil rusty or supraclavicular adenopathy by size criteria. Thyroid gland appears normal where well seen. Note is made of a small hiatal hernia behind the heart. Abdomen: Visualized upper abdominal solid organs appear normal. Upper abdominal bowel loops are nor mal in caliber. IMPRESSION: A pulmonary embolus is not found, there is no sign of aortic aneurysm or dissection. Source of curren t reported shortness of breath is not seen. Reviewed by: Boby Grant MD on 10/01/2020 8:43 AM PDT Approved by: Boby Grant MD on 10/01/2020 8:43 AM PDT Station ID: [id number]
--- OUTSIDE RECORDS SUMMARY | 2020-10-03 02:48 | EXTERNAL MEDICAL SUMMARY RPT | Continuity of Care Document ---
:1950 Demographics Phone Unavailable Preferred Language Unknown Marital Status Unknown Hindu Affiliation Unknown Race Unknown Ethnic Group Unknown Author Organization [facility] Address [address] [phone] Phone Social History date description facility [id number]
== END 2020-10-01 00:13 | disposition home or self-care (01) ==
LOC: EDUNIT# → ED 21:12
DX: K21.00 Gastro-esophageal reflux disease with esophagitis, without bleeding (principal); K44.9 Diaphragmatic hernia without obstruction or gangrene; R06.01 Orthopnea; I10 Essential (primary) hypertension; G20 Parkinson's disease
CPT/HCPCS: 36415; 71045; 71260; 80053; 83690; 83735; 83880; 84484; 85025; 93005; 99284; A9270; Q9967

== ENCOUNTER 2020-11-04 21:26 | Outpatient (CLI) | payer MEDICARE, MEDICAID | END 2020-11-04 21:27 | disposition critical access hospital (66) | LOC: EMS 21:26 | DX: R05 Cough (principal); R06.02 Shortness of breath | CPT/HCPCS: A0425; A0429 ==

== ENCOUNTER 2020-11-04 21:43 | Emergency (ER) | payer MEDICARE, MEDICAID ==
--- NOTE | 2020-11-04 23:31 | ED Physician Documentation ---
PD HPI DYSPNEA - Stated complaint Stated Complaint: COUGH/ SOA - Chief complaint Chief Complaint: Resp - History obtained from History obtained from: Patient - Additional information Additional information: Pt comes to the ED with cc of "coughing fit". He states he was about to start eating dinner, when he suddenly went into a fit of strong coughing for no apparent reason. This lasted about 30-60 seconds, and afterward, he felt so short of breath that he couldn't swallow his food. His called EMS, during which time, the pt regained his breath and was able to eat his entire meal without any difficulty by the time EMS got there. Pt denies recent illness. He has otherwise been feeling well. No other symptoms such as fever, chest pain, ongoing cough or ongoing dyspnea. Pt is not a smoker, but states both his and roommate smoke at home, though they try to do it outside. Pt states he is feeling completely back to normal now. He denies choking on anything as a cause of the coughing. No other complaints at this time. He states he decided to be transported to the ED, just to get "checked out". Review of Systems Ten Systems: 10 systems reviewed and negative Constitutional: reports: Reviewed and negative Eyes: reports: Reviewed and negative Ears: reports: Reviewed and negative Nose: reports: Reviewed and negative Throat: reports: Reviewed and negative Cardiac: reports: Reviewed and negative Respiratory: reports: Dyspnea, Cough GI: reports: Reviewed and negative : reports: Reviewed and negative Skin: reports: Reviewed and negative Musculoskeletal: reports: Reviewed and negative Neurologic: reports: Reviewed and negative Psychiatric: reports: Reviewed and negative Endocrine: reports: Reviewed and negative Immunocompromised: reports: Reviewed and negative PD PAST MEDICAL HISTORY - Past Medical History Past Medical History: Yes Cardiovascular: Hypertension Respiratory: None Neuro: Parkinson's Endocrine/Autoimmune: None GI: Hepatitis, Other : None HEENT: None Psych: None Musculoskeletal: None Derm: None - Past Surgical History Past Surgical History: Yes General: Colonoscopy, Other - Present Medications Home Medications: Ambulatory Orders Medication Instructions Recorded Confirmed Multivitamin [Multivitamins] 1 each PO DAILY 02/23/14 07/16/20 Carbidopa/Levodopa [Carbidopa-Levo 1 each PO QID 09/20/18 07/16/20 ER 25-100 Tab] amLODIPine [Norvasc] 5 mg PO DAILY 07/16/20 07/16/20 Famotidine [Pepcid] 20 mg PO DAILY #30 tablet 09/30/20 Hydrochlorothiazide 25 mg PO QPM 09/30/20 09/30/20 Sucralfate [Carafate] 1 gm PO HS #30 tablet 09/30/20 - Allergies Allergies/Adverse Reactions: Allergies Allergy/AdvReac Type Severity Reaction Status Date / Time No Known Drug Allergies Allergy Verified 11/04/20 21:47 - Social History Does the pt smoke?: No Smoking Status: Never smoker Does the pt drink ETOH?: No Does the pt have substance abuse?: No - Immunizations Immunizations are current?: Yes - POLST Patient has POLST: No PD ED PE NORMAL - Vitals Vital signs reviewed: Yes - General General: Alert and oriented X 3, No acute distress, Well developed/nourished, Other (Pt smells very strongly of cigarette smoke.) - HEENT HEENT: Atraumatic, PERRL, EOMI, Moist mucous membranes - Neck Neck: Supple, no meningeal sign - Cardiac Cardiac: RRR, No murmur - Respiratory Respiratory: No respiratory distress, Clear bilaterally - Abdomen Abdomen: Soft, Non tender, Non distended - Derm Derm: Normal color, Warm and dry, No rash - Extremities Extremities: No deformity, No edema, No calf tenderness / cord - Neuro Neuro: Alert and oriented X 3, 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 Given the pt's ongoing and seemingly greater than acknowledged exposure to second-hand smoke, I did send him for a chest x-ray, as he is at increased risk of lung disease; however, this was unremarkable. We have discussed home management of the sx, as well as the usual indications for return. Departure - Departure Disposition: 01 Home, Self Care Clinical Impression: Choking episode Condition: Stable Instructions: ED Choking Spell Comments: Your chest x-ray shows no concerning findings. Your lungs are clear and your oxygen is good. It isn't clear why you had the coughing fit tonight, but no emergent condition has been found. Please follow up with your doctor if needed. Discharge Date/Time: 11/04/20 23:36
[2020-11-04 23:41] VITALS: BP 156/89
--- NOTE | 2020-11-05 08:12 | XRAY Report ---
PROCEDURE: Chest 1 View X-Ray INDICATIONS: chest pain TECHNIQUE: One view of the chest was acquired. COMPARISON: CT chest 09/30/2020 FINDINGS: Surgical changes and devices: None. Lungs and pleura: No pleural effusions or pneumothorax. Lungs are clear. Mediastinum: Mediastinal contours appear normal. Heart size is normal. Bones and chest wall: No suspicious bony lesions. Overlying soft tissues appear unremarkable. IMPRESSION: No change, normal for age, source of current symptoms is not seen. Reviewed by: Boby Grant MD on 11/05/2020 8:11 AM PDT Approved by: Boby Grant MD on 11/05/2020 8:11 AM PDT Station ID: [id number]
== END 2020-11-04 23:36 | disposition home or self-care (01) ==
LOC: EDUNIT# → ED 21:43
DX: R09.89 Other specified symptoms and signs involving the circulatory and respiratory systems (principal); Z77.22 Contact with and (suspected) exposure to environmental tobacco smoke (acute) (chronic)
CPT/HCPCS: 99283; 99284